=== PATIENT | male | born 1985 | race Caucasian/White ===

== ENCOUNTER 2017-09-03 10:40 | Emergency (ER) | payer OTHER ==
[~2017-09-03] VITALS: Ht 177.8 cm; Wt 124.4 kg
[2017-09-03 11:42] LABS: CALCIUM 9.2 mg/dL (8.5-10.1); CARBON DIOXIDE 29.6 mmol/L (21-32); CHLORIDE SERUM 102 mmol/L (98-107); CREATININE SERUM 0.8 mg/dL (0.7-1.3); GFR1 > 60 mL/min; GLUCOSE SERUM 123 mg/dL (74-106); POTASSIUM SERUM 3.9 mmol/L (3.5-5.1); SODIUM SERUM 139 mmol/L (136-145)
[2017-09-03 11:47] LABS: ALBUMIN 4.6 g/dL (3.4-5.0); ALKALINE PHOSPHATASE 26 U/L (46-116); ALT/SGPT 64 U/L (16-63); AMYLASE 39 U/L (25-115); AST/SGOT 27 U/L (15-37); BILIRUBIN TOTAL 0.45 mg/dL (0.20-1.00); CHOLESTEROL 167 mg/dL (<200); HDL CHOLESTEROL 53 mg/dL (40-60); LIPASE 115 IU/L (73-393); TOTAL PROTEIN, SERUM 9.1 g/dL (6.4-8.2)
[2017-09-03 11:52] LABS: BASOPHIL % 0.2 % (0-2); PLATELET COUNT 243 x10^3mcL (130-400); RED CELL DISTRIBUTION WIDTH 13.5 % (11.5-14.5)
[2017-09-03 12:52] LABS: UA SPECIFIC GRAVITY 1.015 (1.005-1.035); microscopic required? YES; urine erythrocyte NEGATIVE (NEGATIVE)
[2017-09-03 13:03] LABS: AMPHETAMINE QUAL UR NONE DETECTED (NEG <=1000)
[2017-09-03 14:26] VITALS: BP 159/89
== END 2017-09-03 14:26 | disposition home or self-care (01) ==
LOC: ED 10:40
PROVIDERS: Emergency Medicine
DX: F12.288 Cannabis dependence with other cannabis-induced disorder (principal); Z90.89 Acquired absence of other organs
CPT/HCPCS: 83880; J1630; J2060; J2405; J3490; J7030